=== PATIENT | female | born 1955 | race Two or more races ===

== ENCOUNTER 2024-11-05 10:29 | Observation (INO) | payer OTHER ==
[~2024-11-05] VITALS: Ht 160 cm; Wt 61.1 kg
--- NOTE | 2024-11-05 11:08 | ED.PDOC ---
History of Present Illness HPI Comments 68 y/o F, with a Hx of breast CA and hypothyroidism, is BIBA for c/o shortness of breath, generalized weakness, abdominal and chest pain, and poor appetite for the past 3-4x days, today. Per EMS report, patient was found on [id number]% on RA, today, and was given breathing Tx and placed on 6lpm O2 en route, with improvement to SpO2 to 96-97%. Patient refutes any recent sick contact, travel, or additional relevant or pertinent Hx. She denies any cough, fever, chills, palpitations, dizziness, or other associated symptoms or modifiers at this time. Chief Complaint: Shortness of Breath Time Seen by MD: 10:50 Primary Care Provider: AUGUSTINE Reviewed Notes: Nurses Notes, Transfer Agent Notes, Medications, Allergies Allergies: Coded Allergies: NO KNOWN ALLERGIES (Unverified , 11/05/24) Information Source: Patient, Emergency Med Personnel Mode of Arrival: EMS Severity: Moderate Timing: Days Duration: Since onset Prehospital treatment: 12 Lead EKG, Estimator Lumber Past Medical History PAST MEDICAL HISTORY: Cancer (breast), Thyroid Surgical History: Denies all surgeries PHOTOGRAPHIC SPOTTER History: No Pertinent PHOTOGRAPHIC SPOTTER History Family History Family History: Unknown Social History Smoker: Non-Smoker Alcohol: Denies ETOH Use Drugs: Denies Drug Use Lives In: Home Respiratory: reports: shortness of breath Cardiovascular: reports: chest pain Gastrointestinal: reports: abdominal pain, poor appetite Neurological: reports: weakness All Other Systems: Reviewed and Negative (negative unless otherwise stated above or in HPI) Physical Exam General Appearance: Moderate Distress HEENT: Normal ENT Inspection, Pharynx Normal, TMs Normal Neck: Full Range of Motion, Non-Tender, Normal, Normal Inspection Respiratory: Respiratory Distress, Other (Coarse breath sounds) Cardiovascular: No Edema, No JVD, No Murmur, No Gallop, Normal Peripheral Pulses, Regular Rate/Rhythm Breast Exam: Deferred Gastrointestinal: No Organomegaly, Non Tender, No Pulsatile Mass, Normal Bowel Sounds, Soft Genitalia: Deferred Pelvic: Deferred Rectal: Deferred Extremities: No calf tenderness, Normal capillary refill, Normal inspection, Normal range of motion, Non-tender, No pedal edema Musculoskeletal : Apperance: Normal Neurologic: Alert, grinder operator II-XII nml as Tested, No Motor Deficits, Normal Affect, Normal Mood, No Sensory Deficits Cerebellar Function: NOT DONE Reflexes: NOT DONE Skin: Dry, Normal Color, Warm Peripheral Pulses: 3+ Radial (R), 3+ Radial (L) Lymphatic: No Adenopathy Was a procedure done? Was a procedure done?: No EKG EKG : Pulse Rate (adult): 83 [place]: Normal Cardiac Rhythm: NSR Block: None Hypertrophy: None ST: Normal Differential Dx Considerations may include: URI, covid19, viral syndrome, bronchitis, PNA X-Ray, Labs, Meds, VS Vital Signs Date Time Temp Pulse Resp B/P (MAP) Pulse Ox O2 Delivery O2 Flow Rate FiO2 11/05/24 13:30 80 20 137/71 (93) 94 11/05/24 13:11 80 20 99 Nasal Cannula* 4 36 11/05/24 12:00 88 11/05/24 11:26 98.0 93 18 132/69 (90) 94 98.0 11/05/24 11:26 93 18 94 Nasal Cannula* 4 36 11/05/24 11:08 83 11/05/24 10:35 96 Nasal Cannula* 2 28 11/05/24 10:35 97.6 87 20 153/73 (99) 96 11/05/24 10:33 83 Lab Test 11/05/24 11:15 11/05/24 11:12 Range/Units White Blood Count 11.4 H 4.4-10.8 10^3/uL Red Blood Count 4.22 4.0-5.20 10^6/uL Hemoglobin 14.4 12.2-16.2 g/dL Hematocrit 43.0 36.0-46.0 % Mean Corpuscular Volume 101.9 H 80.0-100.0 fL Mean Corpuscular Hemoglobin 34.1 H 28.0-32.0 pg Mean Corpuscular Hemoglobin Concent 33.4 32.0-36.0 g/dL Red Cell Distribution Width 14.6 H 11.8-14.3 % Platelet Count 143 140-450 10^3/uL Mean Platelet Volume 9.8 6.9-10.8 fL Neutrophils (%) (Auto) 37.0-80.0 % Lymphocytes (%) (Auto) 10.0-50.0 % Monocytes (%) (Auto) 0.0-12.0 % Basophils (%) (Auto) 0.0-2.0 % Neutrophils # (Auto) 1.6-8.6 10 ^3/uL Lymphocytes # (Auto) 0.4-5.4 10 ^3/uL Monocytes # (Auto) 0-1.3 10 ^3/uL Differential Total Cells Counted Pending Neutrophils % (Manual) Pending Band Neutrophils % (Manual) Pending Lymphocytes % (Manual) Pending Monocytes % (Manual) Pending Eosinophils % (Manual) Pending Basophils % (Manual) Pending Metamyelocytes % (manual) Pending Myelocytes % (Manual) Pending Promyelocytes % (Manual) Pending Blast Cells % (Manual) Pending Reactive Lymphocytes Pending Platelet Estimate Pending Sodium Level 133 L 136-145 mmol/L Potassium Level 3.4 L 3.5-5.1 mmol/L Chloride Level 94 L 98-107 mmol/L Carbon Dioxide Level 32 H 20-31 mmol/L Anion Gap 7 5-15 Blood Urea Nitrogen 46 H 9-23 mg/dL Creatinine 1.41 H 0.550-1.02 mg/dL Glomerular Filtration Rate Calc 40 >90 mL/min BUN/Creatinine Ratio 32.6 H 10.0-20.0 Serum Glucose 96 74-106 mg/dL Calcium Level 9.5 8.7-10.4 mg/dL Troponin I High Sensitivity 1967 *H </=34 ng/L Influenza Type A Antigen Negative Negative Influenza Type B Antigen Negative Negative SARS-CoV-2 Antigen (Rapid) Negative NEGATIVE Current Medications Medications (Trade) Dose Ordered Sig/Lloyd Route Start Time Stop Time Status Last Admin Ceftriaxone Sodium 50 ml @ 100 mls/hr ONCE ONCE IV 11/05/24 11:00 11/05/24 11:29 DC 11/05/24 11:25 Enoxaparin Sodium (Lovenox) 60 mg ONCE ONCE SC 11/05/24 12:30 11/05/24 12:31 DC 11/05/24 12:57 Patient alert. Complaining of shortness a breath chest pain. Vitals stable. Answering all questions. EKG does show changes. Cardiac marker elevated. Cardiology consultation. Was given Lovenox. Possible pneumonia. Potassium is low. Was given potassium. WBC elevated. Was given Rocephin. Was given azithromycin. Reviewed her history. Explained to the patient. Continue cardiac monitoring. Time of 1ST Reevaluation: 11:20 Reevaluation 1ST: Unchanged Patient Education/Counseling: Diagnosis, Treatment Family Education/Counseling: No Family Present Departure 1 Departure Time of Disposition: 14:16 Impression: Primary Impression: NSTEMI (non-ST elevated myocardial infarction) Additional Impression: Pneumonia Qualified Codes: J18.9 - Pneumonia, unspecified organism Disposition: ADMITTED INPATIENT Admit to: Med Surg Condition: Guarded Critical Care Note Critical Care Time?: Yes (90 min-critical care time only) Stability Stability form required: No Heart Score Heart Score: Heart Score Response (Comments) Value History Moderate Suspicious 1 EKG Normal 0 Age >65 2 Risk Factors 1 or 2 risk factors 1 Troponin >3 x's Normal limit 2 Total 6 I personally scribed for COREY JOSEPH MD ([email or web address]) on 11/05/24 at 11:08. Electronically submitted by Corey Mazariegos ([email or web address]). COREY JOSEPH MD Nov 05, 2024 11:08
[2024-11-05] MEDS: cefTRIAXone 1GM/50ML D5W 50 ML IV ONE (11:25)
[2024-11-05 11:26] VITALS: PULSE 93; RESP 18; O2SAT 94
[2024-11-05 12:00] LABS: Hemoglobin 14.4 g/dL (12.2-16.2); Mean Corpuscular Hemoglobin 34.1 pg (28.0-32.0); Mean Corpuscular Hgb Conc. 33.4 g/dL (32.0-36.0); Mean Corpuscular Volume 101.9 fL (80.0-100.0); Platelet Count (auto) 143 10^3/uL (140-450); Red Blood Cells 4.22 10^6/uL (4.0-5.20); Red Cell Distribution Width 14.6 % (11.8-14.3); White Blood Cell 11.4 10^3/uL (4.4-10.8)
[2024-11-05 12:02] LABS: Anion Gap 7 (5-15); Calcium 9.5 mg/dL (8.7-10.4)
--- NOTE | 2024-11-05 12:05 | DVH ---
CHEST RADIOGRAPH Indication: sob Technique: Single frontal view of the chest was obtained COMPARISON: None FINDINGS: Lines and Tubes: None Lungs: Severe multifocal airspace disease. Pleura: No effusion. No pneumothorax. Cardiomediastinal contours: Unremarkable Bones: Unremarkable IMPRESSION: Severe multifocal airspace disease.
[2024-11-05 12:07] LABS: BUN/Creatinine Ratio 32.6 (10.0-20.0); Glucose 96 mg/dL (74-106)
[2024-11-05 12:08] LABS: Blood Urea Nitrogen 46 mg/dL (9-23); Carbon Dioxide 32 mmol/L (20-31); Chloride 94 mmol/L (98-107); Potassium 3.4 mmol/L (3.5-5.1); Sodium 133 mmol/L (136-145)
[2024-11-05 12:14] LABS: Basophils % (manual) 0 (0.0-2.0); Blast Cells 0; Eosinophils % (manual) 0 (0-7); Myelocytes % 0; Promyelocytes % 0; Reactive Lymphocytes 0
[2024-11-05 12:47] LABS: COVID19 ANTIGEN SOFIA FIA NEGATIVE (NEGATIVE)
[2024-11-05 12:48] LABS: Rapid Influenza A Negative (Negative); Rapid Influenza B Negative (Negative)
[2024-11-05] MEDS: ENOXAPARIN SOD 60 MG/0.6 ML SYRINGE SC ONE (12:49)
[2024-11-05 13:11] VITALS: PULSE 80; RESP 20; O2SAT 99
[2024-11-05 14:29] LABS: Band Neutrophils % (manual) 2; Lymphocytes % (manual) 5 (10.0-50.0); Macrocytosis Slight; Metamyelocytes % 2; Monocytes % (manual) 12 (0-12); Platelet Estimate Adequate
--- NOTE | 2024-11-05 15:39 | DVHINCON2 ---
Date Seen: Nov 05, 2024 Referring Physician MD Dimitrios Reason for Consultation NSTEMI History of Present Illness This is a 68-year-old female patient who presents to the emergency room with chief complaint of shortness of breath for two days. The patient also reports chest pain. She describes the pain as unprovoked, pressure-like in nature, intermittent, and right-sided with radiation across to her left side of chest. Associated symptoms include shortness of breath. She came to the emergency room for further evaluation. Cardiology has now been consulted STAT for elevated troponin levels. Initial twelve lead electrocardiogram reveals normal sinus rhythm without any significant ST segment changes and anterior Q-waves. Initial troponin level of 1967ng/L. Significant past medical history includes rheumatic fever, hypothyroidism, COPD, liver cirrhosis, breast cancer with pending radiation treatment, previous alcohol abuse, and tobacco use. The patient denies any previous significant cardiac history. She reports that she is currently being seen by an oncologist in [place] and is pending radiation treatment for her breast cancer. Past Medical History Past medical history reviewed. No other significant than mentioned above. Past Surgical History Bilateral breast implants Family History Family history reviewed. Social History Patient reports previous alcoholism, quit drinking approximately five years ago Patient has a 10 pack-year history, currently smokes 3-4 cigarettes per day Patient admits to occasional marijuana use Allergies: Coded Allergies: NO KNOWN ALLERGIES (Unverified , 11/05/24) Home Meds Home medications reviewed. Review of Systems Constitutional: No symptom reported Ears, Nose, & Throat: No symptom reported Eyes: No symptom reported Neurological: No symptoms reported Pulmonary/Respiratory: Shortness of breath Cardiovascular: Chest pain Gastrointestinal: No symptom reported Genitourinary: No symptom reported Musculoskeletal: No symptom reported Skin: No symptom reported Psychiatric: No symptom reported Endocrine: No symptom reported Hematologic/Lymphatic: No symptom reported Vital Signs Vital Signs Date Time Temp Pulse Resp B/P (MAP) Pulse Ox O2 Delivery O2 Flow Rate FiO2 11/05/24 13:30 80 20 137/71 (93) 94 11/05/24 13:11 Nasal Cannula* 4 36 11/05/24 11:26 98.0 98.0 Physical Exam General Appearance: Cooperative. Well-developed. Well-nourished. No acute distress. Pulmonary/Respiratory: Coarse throughout Cardiovascular/Chest: Regular rate and rhythm. Peripheral Pulses: 2+ Radial (R). 2+ Radial (L). 2+ Pedal (R). 2+ Pedal (L) Abdominal Exam: Normal bowel sounds. Ankle Exam: Negative ankle edema Lower extremities: Negative lower extremity edema Neuro/Mental Status: A/OX4, coherent. Thoughts/Psych: Normal thought pattern. Appropriate mood and affect. Good judgment and insight. Appearance: No acute distress. Skin Exam: Normal inspection. Normal color. Warm and dry. Labs/Diagnostic Data Labs Test 11/05/24 11:15 11/05/24 11:12 Range/Units White Blood Count 11.4 H 4.4-10.8 10^3/uL Red Blood Count 4.22 4.0-5.20 10^6/uL Hemoglobin 14.4 12.2-16.2 g/dL Hematocrit 43.0 36.0-46.0 % Mean Corpuscular Volume 101.9 H 80.0-100.0 fL Mean Corpuscular Hemoglobin 34.1 H 28.0-32.0 pg Mean Corpuscular Hemoglobin Concent 33.4 32.0-36.0 g/dL Red Cell Distribution Width 14.6 H 11.8-14.3 % Platelet Count 143 140-450 10^3/uL Mean Platelet Volume 9.8 6.9-10.8 fL Neutrophils (%) (Auto) 37.0-80.0 % Lymphocytes (%) (Auto) 10.0-50.0 % Monocytes (%) (Auto) 0.0-12.0 % Basophils (%) (Auto) 0.0-2.0 % Neutrophils # (Auto) 1.6-8.6 10 ^3/uL Lymphocytes # (Auto) 0.4-5.4 10 ^3/uL Monocytes # (Auto) 0-1.3 10 ^3/uL Differential Total Cells Counted 100.0 100 Neutrophils % (Manual) 79 37.0-80.0 Band Neutrophils % (Manual) 2 Lymphocytes % (Manual) 5 L 10.0-50.0 Monocytes % (Manual) 12 0-12 Eosinophils % (Manual) 0 0-7 Basophils % (Manual) 0 0.0-2.0 Metamyelocytes % (manual) 2 Myelocytes % (Manual) 0 Promyelocytes % (Manual) 0 Blast Cells % (Manual) 0 Reactive Lymphocytes 0 Platelet Estimate Adequate Macrocytosis Slight Sodium Level 133 L 136-145 mmol/L Potassium Level 3.4 L 3.5-5.1 mmol/L Chloride Level 94 L 98-107 mmol/L Carbon Dioxide Level 32 H 20-31 mmol/L Anion Gap 7 5-15 Blood Urea Nitrogen 46 H 9-23 mg/dL Creatinine 1.41 H 0.550-1.02 mg/dL Glomerular Filtration Rate Calc 40 >90 mL/min BUN/Creatinine Ratio 32.6 H 10.0-20.0 Serum Glucose 96 74-106 mg/dL Calcium Level 9.5 8.7-10.4 mg/dL Troponin I High Sensitivity 1967 *H </=34 ng/L Influenza Type A Antigen Negative Negative Influenza Type B Antigen Negative Negative SARS-CoV-2 Antigen (Rapid) Negative NEGATIVE Assessment NSTEMI, likely type II secondary to pneumonia Rule out structural heart disease Hypokalemia Acute kidney injury Thyroid disease Breast cancer History of rheumatic fever History of alcoholism Liver cirrhosis Tobacco use Plan/Recommendation We will continue with the following plan/recommendations (Dr. Thomas): Patient seen and examined at bedside with . We will proceed with obtaining a transthoracic echocardiogram to evaluate cardiac function. Elevated troponin levels likely secondary to demand mismatch ischemia from pneumonia, but NSTEMI type 1 cannot be ruled out at this time. The patient was already given a one time dose of Lovenox (1mg/Kg). We will load the patient with aspirin and trend troponin level. Monitor for any ECG changes. Antibiotics per primary care team. We will continue to follow closely. Thank you for allowing us to care for this patient. Please call with any questions or concerns. Critical care time spent: 41 minutes This medical document was created using an electronic medical record system with voice recognition software and computerized dictation system. Although this document has been carefully reviewed, there might still be some phonetic and typographical errors. Occasional wrong-word or ``sound-alike substitutions may have occurred due to the inherent limitations of voice recognition software. These areas are purely typographical due to imperfections of the software programs and do not reflect any compromise in the patient's medical care. Please read the chart carefully and recognize, using context, where these substitutions have occurred. Plan discussed with: Patient Date of Service: Nov 05, 2024 Billing Provider: KEO THOMAS MD Cardiology Common Codes: 34271-[id number] INP/OBS CARE (High) Cardiology Consultation Codes: 05405-[id number] CONSULT <45MIN CAMRON GARCIA Nov 05, 2024 15:39
[2024-11-05] MEDS: ASPirin-EC 325mg tab PO ONE (16:48)
[2024-11-05] MEDS: POTASSIUM EFFERVESENT TAB 25 MEQ PO ONE (16:48)
[2024-11-05] MEDS: AZITHROMYCIN 500MG/ 250ML 250 ML IV ONE (16:48)
[2024-11-05] MEDS: POTASSIUM EFFERVESENT TAB 25 MEQ ONE (16:49)
[2024-11-05] MEDS: ALBUTEROL SULF 2.5 MG/0.5ML(0.5%) NEB SOLN NEB ONE (17:32)
[2024-11-05] MEDS: IPRATROPIUM BROM 0.5 MG/2.5ML INH SOL NEB ONE (17:32)
[2024-11-05] MEDS: methylPREDNISolone SOD SUCC 125 MG/2 ML VL IV ONE (17:50)
[2024-11-05] MEDS ORDERED: NITROGLYCERIN 0.4 MG SL TAB SL PRN (18:15)
[2024-11-05] MEDS ORDERED: HYDROcodone-ACET 5/325MG TAB PO PRN (18:15)
[2024-11-05] MEDS ORDERED: MORPHINE SULFATE INJ 2 MG/ml SYRG IV PRN ×2 (18:15)
[2024-11-05] MEDS ORDERED: ACETAMINOPHEN 325 MG TAB PO PRN (18:15)
[2024-11-05] MEDS ORDERED: TEMAZEPAM 15 MG CAP PO PRN (18:15)
--- NOTE | 2024-11-05 18:22 | ECG ---
[facility] Test Date: 2024-11-05 Test Time: 10:33:38 Pat Name: ANKIT TALBERT Department: ER Room: [address] [place] [address] Gender: F Optometry Doctor: JULIÁN : 1955 Requested By: COREY JOSEPH Order Number: [id number] Reading MD: Alberto Belcher Measurements Intervals [place] Rate: 83 P: 72 [place]: 158 QRS: 150 QRSD: 107 T: 83 QT: 407 QTc: 479 Interpretive Statements Sinus rhythm Anterolateral infarct, old Electronically Signed On 11-05-2024 22:20:02 PST by Alberto Belcher Please click the below link to view image of tracing.
[2024-11-05] MEDS: SODIUM CHLORIDE 0.9% 1,000 ML IV SCH (18:49)
[2024-11-05 19:49] VITALS: PULSE 80; RESP 28; O2SAT 97
--- NOTE | 2024-11-05 20:39 | DVHHP2 ---
Admitting Diagnosis: NSTEMI History of Present Illness HPI Patient is a 68-year-old female who presents with 3 days of cough, fever, chills and chest pain. Patient presented to the ER noted to be hypoxic requiring 4 L nasal cannula. Labs are notable for WBC count of 11.4. BMP was notable for BUN/creatinine of 46/1.41. Troponin was elevated at 1966 and peaked at 2092 and subsequently down trended. EKG did not show any ST changes. Patient was eval b y cardiology in the ER attributed her presentation to demand ischemia. Nonetheless the patient was started on therapeutic Lovenox. Patient was also treated with Solu-Medrol, DuoNeb, azithromycin and ceftriaxone. Chest x-ray was notable for severe multifocal airspace disease. Patient denies any cardiac history or smoking history. Patient was admitted for further evaluation given her NSTEMI and underlying respiratory failure. Review of Systems Constitutional: Chills, Fever Pulmonary/Respiratory: Dyspnea, Cough Cardiovascular: Chest Pain H&P Exam Vital Signs Vital Signs Date Time Temp Pulse Resp B/P (MAP) Pulse Ox O2 Delivery O2 Flow Rate FiO2 11/05/24 20:00 79 11/05/24 18:00 14 116/97 (103) 96 11/05/24 17:15 Nasal Cannula* 4 36 11/05/24 11:26 98.0 98.0 General Appeara: Mild distress Pulmonary/Respiratory: Crackles Cardiovascular/Chest: Regular rate Labs/Xrays Labs Test 11/05/24 17:50 11/05/24 11:15 11/05/24 11:12 Range/Units Troponin I High Sensitivity 1873 *H </=34 ng/L White Blood Count 11.4 H 4.4-10.8 10^3/uL Red Blood Count 4.22 4.0-5.20 10^6/uL Hemoglobin 14.4 12.2-16.2 g/dL Hematocrit 43.0 36.0-46.0 % Mean Corpuscular Volume 101.9 H 80.0-100.0 fL Mean Corpuscular Hemoglobin 34.1 H 28.0-32.0 pg Mean Corpuscular Hemoglobin Concent 33.4 32.0-36.0 g/dL Red Cell Distribution Width 14.6 H 11.8-14.3 % Platelet Count 143 140-450 10^3/uL Mean Platelet Volume 9.8 6.9-10.8 fL Neutrophils (%) (Auto) 37.0-80.0 % Lymphocytes (%) (Auto) 10.0-50.0 % Monocytes (%) (Auto) 0.0-12.0 % Basophils (%) (Auto) 0.0-2.0 % Neutrophils # (Auto) 1.6-8.6 10 ^3/uL Lymphocytes # (Auto) 0.4-5.4 10 ^3/uL Monocytes # (Auto) 0-1.3 10 ^3/uL Differential Total Cells Counted 100.0 100 Neutrophils % (Manual) 79 37.0-80.0 Band Neutrophils % (Manual) 2 Lymphocytes % (Manual) 5 L 10.0-50.0 Monocytes % (Manual) 12 0-12 Eosinophils % (Manual) 0 0-7 Basophils % (Manual) 0 0.0-2.0 Metamyelocytes % (manual) 2 Myelocytes % (Manual) 0 Promyelocytes % (Manual) 0 Blast Cells % (Manual) 0 Reactive Lymphocytes 0 Platelet Estimate Adequate Macrocytosis Slight Sodium Level 133 L 136-145 mmol/L Potassium Level 3.4 L 3.5-5.1 mmol/L Chloride Level 94 L 98-107 mmol/L Carbon Dioxide Level 32 H 20-31 mmol/L Anion Gap 7 5-15 Blood Urea Nitrogen 46 H 9-23 mg/dL Creatinine 1.41 H 0.550-1.02 mg/dL Glomerular Filtration Rate Calc 40 >90 mL/min BUN/Creatinine Ratio 32.6 H 10.0-20.0 Serum Glucose 96 74-106 mg/dL Calcium Level 9.5 8.7-10.4 mg/dL Influenza Type A Antigen Negative Negative Influenza Type B Antigen Negative Negative SARS-CoV-2 Antigen (Rapid) Negative NEGATIVE Assessment/Plan Primary Diagnosis 1. NSTEMI 2' Diagnosis/Co-morbidities 2. Acute Respiratory Failure 3. PENELOPE Plan Cardiology consulted for NSTEMI. TTE pending. Therapeutic Lovenox 60 mg every 12 hours. NS IVF for PENELOPE. Nasal cannula with goal pulse ox greater than 92%. Levofloxacin 750 mg p.o. daily. Solu-Medrol 40 mg IV twice daily. DuoNeb treatments. PT eval ordered. CM consulted for home oxygen and PT. Full Code. Plan discussed with: Patient ANTONELLA CAMP Lydia ROBBINS Nov 05, 2024 20:39
[2024-11-05 20:50] VITALS: BP 125/63; PULSE 79; RESP 20; TEMP 98; O2SAT 96
--- NOTE | 2024-11-05 21:12 | DVH ---
INDICATION: PENELOPE TECHNIQUE: Multiple real-time sonographic images of the kidneys and bladder were obtained. COMPARISON: None FINDINGS: The right kidney measures 11.27 cm in length, which is normal in size. There is normal echogenicity o f the right kidney. Hydronephrosis is present . The left kidney measures 11.8 cm in length, which is normal in size. There is normal echogenicity of the left kidney. Left hydronephrosis.. No large intraluminal masses are seen in the bladder. Armas catheter in place in the bladder is contracted IMPRESSION: 1. 11.27 cm right kidney 11.88 cm long left kidney 2. Bilateral hydronephrosis. HS:Y
[2024-11-06] VITALS (19 sets, daily range): BP systolic 125–147; BP diastolic 43–60; PULSE 60–92; RESP 14–20; TEMP 36.3; O2SAT 79–97
[2024-11-06] MEDS: ALBUTEROL SULF 2.5 MG/0.5ML(0.5%) NEB SOLN NEB SCH (00:07)
[2024-11-06] MEDS: IPRATROPIUM BROM 0.5 MG/2.5ML INH SOL NEB SCH (00:07)
[2024-11-06 01:34] LABS: Urine Bacteria None Seen /hpf (None Seen)
[2024-11-06 01:52] LABS: Urine Blood TRACE /uL (Negative); Urine Clarity Turbid (Clear); Urine Color Yellow (Yellow); Urine Hyaline Cast FEW /lpf (0 - 2); Urine Protein, UAD Negative (Negative); Urine Specific Gravity 1.015 (1.001-1.035); Urine Squamous Epithelial Cell FEW /hpf (<5); Urine Urobilinogen 4 mg/dL (Negative); Urine WBC 5 /hpf (0 - 5); Urine pH 5.5 (5.0-9.0)
[2024-11-06] MEDS ORDERED: LEVO25TA6 PO (03:22)
[2024-11-06] MEDS ORDERED: ANAS1TAB7 PO (03:22)
[2024-11-06 07:39] LABS: Hemoglobin 12.5 g/dL (12.2-16.2); Platelet Count (auto) 104 10^3/uL (140-450); Red Cell Distribution Width 14.1 % (11.8-14.3)
[2024-11-06 07:41] LABS: Hematocrit 36.1 % (36.0-46.0); Mean Corpuscular Hemoglobin 34.8 pg (28.0-32.0); Mean Corpuscular Hgb Conc. 34.5 g/dL (32.0-36.0); Red Blood Cells 3.58 10^6/uL (4.0-5.20); White Blood Cell 7.1 10^3/uL (4.4-10.8)
[2024-11-06 07:45] LABS: Band Neutrophils % (manual) 0; Basophils % (manual) 0 (0.0-2.0); Blast Cells 0; Eosinophils % (manual) 0 (0-7); Metamyelocytes % 0; Myelocytes % 0; Promyelocytes % 0; Reactive Lymphocytes 0
[2024-11-06 07:48] LABS: Alanine Aminotransferase 23 U/L (7-40); Alkaline Phosphatase 112 U/L (46-116); Anion Gap 7 (5-15); BUN/Creatinine Ratio 35.7 (10.0-20.0); Calcium 9.2 mg/dL (8.7-10.4); Carbon Dioxide 30 mmol/L (20-31)
[2024-11-06 07:54] LABS: Blood Urea Nitrogen 40 mg/dL (9-23); Chloride 96 mmol/L (98-107); Glucose 162 mg/dL (74-106); Potassium 3.4 mmol/L (3.5-5.1); Sodium 133 mmol/L (136-145)
[2024-11-06 07:55] LABS: Aspartate Aminotransferase 59 U/L (13-40); Total Protein 4.7 g/dL (5.7-8.2)
[2024-11-06 09:48] LABS: Lymphocytes % (manual) 10 (10.0-50.0); Monocytes % (manual) 12 (0-12); Platelet Estimate Decreased; Smudge Cells 4 /100 WBC
[2024-11-06] MEDS: methylPREDNISolone SOD SUCC 40 MG/ML VL IV SCH (10:00)
[2024-11-06] MEDS: levoFLOXacin 250 MG TAB PO SCH (10:53)
[2024-11-06] MEDS ORDERED: LEVO250T58 PO (12:15)
[2024-11-06] MEDS ORDERED: PRED20TA2 PO (12:15)
[2024-11-06] MEDS ORDERED: FLUT250M2 INH (12:16)
[2024-11-06] MEDS ORDERED: LEVO750T40 PO (12:18)
--- NOTE | 2024-11-06 13:53 | DVHSR ---
APPROVED REPORT EXAM: Two-dimensional and M-mode echocardiogram with Doppler and color Doppler. Blood Pressure: 125/51 mmHg INDICATION NSTEMI RISK FACTORS Height: 5'3, Weight: 134 DIMENSIONS LVDd4.6 (3.8-5.7cm)LA (2D)4.6 (1.9-4.0cm)Aortic Root2.9 (2.0-3.7cm) LVDs3.3 (2.5-4.0cm)LA (MM) (1.9-4.0cm)Aortic Cusp Exc1.2 (1.5-2.0cm) EF (%) 55.0 (55-70%)Rt. Atrium4.5 (1.9-4.0cm)Asc. Aorta3.0 cm IVSd0.9 (0.7-1.1cm)RV (D) (1.8-2.4cm) PWd1.0 (0.7-1.1cm) Mitral Valve MitralMitral Stenosis E wave1.51m/sMV Mean GR.6mmHg A wave1.31m/sMV Peak GR.115mmHg E/A ratio1.22D MVAcm2 DECEL [id number] 1/2 Timems Aortic Valve Aortic ValveAortic Stenosis V11.10m/Yogesh Mean GR.7mmHg V21.89m/Yogesh Peak GR.14mmHg LVOT Diameter1.9 (1.8-2.4cm)Doppler AVA1.65cm2 AI P 1/2 Iaqr840.61ms Pulmonic Valve V21.25m/s Tricuspid Valve TR Velocity2.69m/s [id number] LEFT VENTRICLE Normal left ventricular size. Left ventricular wall thickness is normal. Ejection fraction is carter l and is estimated at 55%. There is no regional wall motion abnormalities. There is evidence of gra de diastolic dysfunction with elevated left-sided filling pressure. RIGHT VENTRICLE The right ventricle is of normal size and systolic function. ATRIA There is moderate biatrial enlargement. MITRAL VALVE There is fdezhlrb-xw-eutoff mitral annular calcification. No significant mitral regurgitation. Mean mitral valve gradient is 6 mm Hg at heart rate of 73 beats per minute. PULMONIC VALVE Likely normal. TRICUSPID VALVE There is moderate tricuspid regurgitation. PA systolic pressure is estimated at 50-55 mm Hg. AORTIC VALVE Aortic valve leaflets are mildly calcified. There is no significant stenosis. There is tiso-yb-odqt rate insufficiency. GREAT VESSELS The aortic root and proximal ascending aorta are of normal size. PERICARDIAL EFFUSION There is no significant pericardial effusion. The IVC is dilated in size and does not collapse carter lly with inspiration. Conclusion Normal left ventricular size and systolic function. Normal right ventricular size and systolic function. Grade II diastolic dysfunction with evidence of elevated left-sided filling pressure. Moderate biatrial enlargement. Moderate to severe mitral annular calcification with mild mitral stenosis. Calcified aortic valve with [id number] insufficiency. Moderate tricuspid regurgitation. PA systolic pressure is estimated at 55-60 mm Hg.
--- NOTE | 2024-11-06 16:15 | DVHPN2 ---
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 vital signs Vital Sign Date Time Temp Pulse Resp B/P (MAP) Pulse Ox O2 Delivery O2 Flow Rate FiO2 11/06/24 13:12 97.9 63 18 131/51 (77) 94 97.9 11/06/24 10:00 Nasal Cannula* 3 32 Total Intake and Output 11/05/24 11/05/24 11/06/24 15:00 23:00 07:00 Intake Total 50 ml 615 ml 280 ml Output Total 0 ml Balance 50 ml 615 ml 280 ml medications Current Medications Medications Dose Ordered Sig/Lloyd Route Start Time Stop Time Status Last Admin Dose Admin Sodium Chloride 1,000 ml @ 60 mls/hr [id number] IV 11/05/24 18:15 11/05/24 18:49 60 MLS/HR Acetaminophen 325 mg Q4HP PRN PO 11/05/24 18:15 Acetaminophen/ Hydrocodone Bitart 1 tab Q4HP PRN PO 11/05/24 18:15 Temazepam 15 mg QHSP PRN PO 11/05/24 18:15 Morphine Sulfate 2 mg Q4HPRN PRN IV 11/05/24 18:15 Nitroglycerin 0.4 mg Q5MINP PRN SL 11/05/24 18:15 Morphine Sulfate 2 mg Q30M PRN IV 11/05/24 18:15 Levofloxacin 750 mg Q48H PO 11/06/24 10:00 11/06/24 10:53 750 MG Methylprednisolone Sodium Succinate 40 mg BID IV 11/06/24 09:00 11/06/24 10:53 40 MG Albuterol 2.5 mg Q6HR NEB 11/06/24 00:00 11/06/24 11:39 2.5 MG Ipratropium [place] 0.5 mg Q6HR NEB 11/06/24 00:00 11/06/24 11:39 0.5 MG Examination: GENERAL:Normal, LUNGS:Abnormal (Diminished bilateral bases), CVS:Normal, NEURO:Normal laboratory and microbiology Laboratory Tests 11/06/24 06:23 Test 11/06/24 06:23 Range/Units Serum Glucose 162 H 74-106 mg/dL Problem List/Assessment/Plan Problem List/Assessment/Plan NSTEMI, likely type II secondary to pneumonia Moderate tricuspid valve regurgitation Hypokalemia Acute kidney injury Thyroid disease Breast cancer History of rheumatic fever History of alcoholism Liver cirrhosis Tobacco use Plan/Recommendation (Dr. Thomas): Patient seen and examined at bedside with . Transthoracic echocardiogram reveals EF 55% with no regional wall motion abnormalities. PA systolic pressure estimated at 55-60 mmHg. Elevated troponin level likely secondary to demand mismatch ischemia from pneumonia infection. At this time, there is no further inpatient cardiac workup indicated. We will highly recommend for the patient to follow up with Cardiology in the outpatient setting for further ischemic workup if deemed necessary. Ideally, the patient should follow up with Cardiology in 1-2 weeks post discharge. We will also like to recommend for the patient to follow up with pulmonology given elevated PA pressures. Thank you for allowing us to care for this patient. Please call with any questions or concerns. This medical document was created using an electronic medical record system with voice recognition software and computerized dictation system. Although this document has been carefully reviewed, there might still be some phonetic and typographical errors. Occasional wrong-word or ``sound-alike substitutions may have occurred due to the inherent limitations of voice recognition software. These areas are purely typographical due to imperfections of the software programs and do not reflect any compromise in the patient's medical care. Please read the chart carefully and recognize, using context, where these substitutions have occurred. Plan discussed with: Patient, Other (Bedside RN, Ant) Date of Service: Nov 06, 2024 Billing Provider: KEO THOMAS MD Common Visit Codes: 36429-[id number] INP/OBS CARE(HIGH) CAMRON GARCIA [employer] MANAGER Nov 06, 2024 16:15
--- NOTE | 2024-11-06 17:07 | DVHDS2 ---
Discharge Summary Date of Admission Nov 05, 2024 at 18:11 Date of Discharge: Nov 06, 2024 Labs/Diagnostic Data: Laboratory Results Test 11/06/24 06:23 11/06/24 00:00 11/05/24 17:50 11/05/24 11:15 White Blood Count 7.1 10^3/uL (4.4-10.8) Red Blood Count 3.58 10^6/uL (4.0-5.20) Hemoglobin 12.5 g/dL (12.2-16.2) Hematocrit 36.1 % (36.0-46.0) Mean Corpuscular Volume 101.0 fL (80.0-100.0) Mean Corpuscular Hemoglobin 34.8 pg (28.0-32.0) Mean Corpuscular Hemoglobin Concent 34.5 g/dL (32.0-36.0) Red Cell Distribution Width 14.1 % (11.8-14.3) Platelet Count 104 10^3/uL (140-450) Mean Platelet Volume 9.7 fL (6.9-10.8) Neutrophils (%) (Auto) % (37.0-80.0) Lymphocytes (%) (Auto) % (10.0-50.0) Monocytes (%) (Auto) % (0.0-12.0) Basophils (%) (Auto) % (0.0-2.0) Neutrophils # (Auto) 10 ^3/uL (1.6-8.6) Lymphocytes # (Auto) 10 ^3/uL (0.4-5.4) Monocytes # (Auto) 10 ^3/uL (0-1.3) Differential Total Cells Counted 100.0 (100) Neutrophils % (Manual) 78 (37.0-80.0) Band Neutrophils % (Manual) 0 Lymphocytes % (Manual) 10 (10.0-50.0) Monocytes % (Manual) 12 (0-12) Eosinophils % (Manual) 0 (0-7) Basophils % (Manual) 0 (0.0-2.0) Metamyelocytes % (manual) 0 Myelocytes % (Manual) 0 Promyelocytes % (Manual) 0 Blast Cells % (Manual) 0 Reactive Lymphocytes 0 Smudge Cells 4 /100 WBC Platelet Estimate Decreased Sodium Level 133 mmol/L (136-145) Potassium Level 3.4 mmol/L (3.5-5.1) Chloride Level 96 mmol/L (98-107) Carbon Dioxide Level 30 mmol/L (20-31) Anion Gap 7 (5-15) Blood Urea Nitrogen 40 mg/dL (9-23) Creatinine 1.12 mg/dL (0.550-1.02) Glomerular Filtration Rate Calc 53 mL/min (>90) BUN/Creatinine Ratio 35.7 (10.0-20.0) Serum Glucose 162 mg/dL (74-106) Calcium Level 9.2 mg/dL (8.7-10.4) Total Bilirubin 2.0 mg/dL (0.2-1.0) Aspartate Amino Transferase (AST) 59 U/L (13-40) Alanine Aminotransferase (ALT) 23 U/L (7-40) Alkaline Phosphatase 112 U/L (46-116) Total Protein 4.7 g/dL (5.7-8.2) Albumin 3.0 g/dL (3.2-4.8) Urine Color Yellow (Yellow) Urine Clarity Turbid (Clear) Urine pH 5.5 (5.0-9.0) Urine Specific [place] 1.015 (1.001-1.035) Urine Protein Negative (Negative) Urine Ketones Negative (Negative) Urine Blood Trace /uL (Negative) Urine Nitrite Negative (Negative) Urine Bilirubin Negative (Negative) Urine Urobilinogen 4 mg/dL (Negative) Urine Leukocyte Esterase Negative /uL (Negative) Urine RBC 6 /hpf (0 - 4) Urine WBC 5 /hpf (0 - 5) Urine Squamous Epithelial Cells Few /hpf (<5) Urine Bacteria None seen /hpf (None Seen) Urine Hyaline Casts Few /lpf (0 - 2) Urine Glucose Normal mg/dL (Normal) Troponin I High Sensitivity 1873 ng/L (</=34) Macrocytosis Slight Test 11/05/24 11:12 Influenza Type A Antigen Negative (Negative) Influenza Type B Antigen Negative (Negative) SARS-CoV-2 Antigen (Rapid) Negative (NEGATIVE) Other Laboratory Tests 11/06/24 06:23 Brief Hx & Hospital Course: Patient is a 68-year-old female who presents with 3 days of cough, fever, chills and chest pain. Patient presented to the ER noted to be hypoxic requiring 4 L nasal cannula. Labs are notable for WBC count of 11.4. BMP was notable for BUN/creatinine of 46/1.41. Troponin was elevated at 1966 and peaked at 2092 and subsequently down trended. EKG did not show any ST changes. Patient was eval by cardiology in the ER attributed her presentation to demand ischemia. Nonetheless the patient was started on therapeutic Lovenox. Patient was also treated with Solu-Medrol, DuoNeb, azithromycin and ceftriaxone. Chest x-ray was notable for severe multifocal airspace disease. Patient denies any cardiac history or smoking history. Patient was admitted for further evaluation given her NSTEMI and underlying respiratory failure. Patient's troponin level was noted to downtrend. Patient denied having any recurrence of chest pain. TTE was done which showed LVEF of 55% with severe pulmonary hypertension with pressures of 55 mmHg to 60 mmHg. Patient was discharged on levofloxacin, home oxygen, prednisone, and Advair for her pneumonia. Patient was cleared from cardiology for discharge. Patient is to follow-up outpatient with cardiology and referred to pulmonary for pulmonary hypertension evaluation. Patient discharged in stable condition. [facility] case management to arrange follow-up appointments. Condition at Discharge: Good Final Diagnosis/Problems List Pneumonia due to either gram positive or gram negative bacteria Secondary Diagnosis: NSTEMI Acute Respiratory Failure-Hypoxic PENELOPE- due to [facility]N Pulmonary Hypertension Discharge Disposition: Home Discharge Instruct/Medications Diet: Cardiac 2g Na,low cholest Activity: No Restrictions, As Tolerated Follow Up/Referral: Follow up with cardiology. Follow up with pulmonary. Medications: Levofloxacin, Advair inhaler, steroids Discharge Statement: "Patient was advised to return to the ER or call 911 if any headaches, dizziness, shortness of breath, chest pain, abdominal pain, bleeding, fevers, or worsening of medical condition. Patient was counseled about treatment plan, medications, possible side effects, patientverbalized understanding. All questions were answered to the best of my ability. This discharge took greater then 30 minutes in planning, reviewing documentation, counseling the patient, and discussing with other team members." ASSESSMENT ASSESSMENT Assessment Pneumonia due to either gram positive or gram negative bacteria ANTONELLA CAMP DO Nov 06, 2024 17:07
== END 2024-11-06 20:00 | disposition home or self-care (01) ==
LOC: ER 10:29 → EDBD 10:29 → ER 14:11 → TELE 18:11 → TELE-WESTW 11-06 01:33
PROVIDERS: ADMIT Student in an Organized Health Care Education/Training Program; ATTEND Student in an Organized Health Care Education/Training Program
DX: I21.A1 Myocardial infarction type 2 (principal); J18.9 Pneumonia, unspecified organism; C50.919 Malignant neoplasm of unspecified site of unspecified female breast; E87.6 Hypokalemia; J96.01 Acute respiratory failure with hypoxia; K74.60 Unspecified cirrhosis of liver; N17.9 Acute kidney failure, unspecified; E03.9 Hypothyroidism, unspecified; F10.21 Alcohol dependence, in remission; R10.9 Unspecified abdominal pain; R63.0 Anorexia; J44.0 Chronic obstructive pulmonary disease with (acute) lower respiratory infection; I27.20 Pulmonary hypertension, unspecified; Z87.891 Personal history of nicotine dependence; Z98.82 Breast implant status; Z85.3 Personal history of malignant neoplasm of breast; Z20.822 Contact with and (suspected) exposure to COVID-19; Z79.899 Other long term (current) drug therapy
CPT/HCPCS: 36415; 71045; 76775; 80048; 80053; 81001; 84484; 85007; 85027; 87081; 87426; 87804; 93005; 93306; 94640; 96361; 96365; 96366; 96367; 96372; 96375; 96376; 99291; 99292; G0378; J0456; J0696; J1650; J2919